=== PATIENT | female | born 1980 | race Two or more races ===

== ENCOUNTER 2022-03-18 06:51 | Emergency (ER) | payer MEDICAID ==
[~2022-03-18] VITALS: Ht 172.7 cm; Wt 110.7 kg
[2022-03-18 08:11] VITALS: BP 116/77
[2022-03-18] MEDS ORDERED: DexAMETHasone SOD PHOS 10MG/1ML VIAL INJ IM ONE (08:30)
[2022-03-18] MEDS ORDERED: PRED10TA PO (09:13)
[2022-03-18 09:28] LABS: Basophils # (auto) 0 10 ^3/uL (0-0.2); Basophils % (auto) 0.4 % (0.0-2.0); Eosinophils # (auto) 0 10 ^3/uL (0-0.8); Eosinophils % (auto) 0.3 % (0.0-7.0); Hematocrit 39.4 % (36.0-46.0); Hemoglobin 13.3 g/dL (12.2-16.2); Lymphocytes % (auto) 32.7 % (10.0-50.0); Mean Corpuscular Hemoglobin 29.1 pg (28.0-32.0); Mean Corpuscular Hgb Conc. 33.7 g/dL (32.0-36.0); Mean Corpuscular Volume 86.2 fL (80.0-100.0); Monocytes # (auto) 0.5 10 ^3/uL (0-1.3); Monocytes % (auto) 7.5 % (0.0-12.0); Neutrophils # (auto) 3.6 10 ^3/uL (1.6-8.6); Neutrophils % (auto) 59.1 % (37.0-80.0); Nucleated Red Blood Cells % 0.1 %; Red Blood Cells 4.57 10^6/uL (4.0-5.20); Red Cell Distribution Width 14.1 % (11.8-14.3); White Blood Cell 6.1 10^3/uL (4.4-10.8)
[2022-03-18 09:33] LABS: Urine Bacteria FEW /hpf (None Seen); Urine Blood 2+ /uL (Negative); Urine Budding Yeast OCCASIONAL /hpf (None Seen); Urine WBC 4 /hpf (0 - 5)
[2022-03-18 10:00] LABS: Albumin 3.9 g/dL (3.4-5.0); Calcium 9.2 mg/dL (8.5-10.1); Potassium 4.2 mmol/L (3.5-5.1)
[2022-03-18 10:03] LABS: BUN/Creatinine Ratio 14.8; Bilirubin, Total 0.4 mg/dL (0.2-1.0)
[2022-03-18 10:05] LABS: Alcohol, Urine < 3.0 mg/dL (0-10); Amphetamine Screen, Urine NEGATIVE (NEGATIVE); Barbiturate Scree,Urine NEGATIVE (NEGATIVE); Cannabinoid Screen, Urine POSITIVE (NEGATIVE); Cocaine Screen, Urine NEGATIVE (NEGATIVE); Opiate Scree,Urine NEGATIVE (NEGATIVE); Phencyclidine Screen, Urine NEGATIVE (NEGATIVE)
[2022-03-18 10:12] LABS: Benzodiazephine Screen, Urine NEGATIVE (NEGATIVE)
== END 2022-03-18 12:46 | disposition home or self-care (01) ==
LOC: EEVIPCON 06:51 → ER 06:51
DX: J66.2 Cannabinosis (principal); T65.91XA Toxic effect of unspecified substance, accidental (unintentional), initial encounter; Y92.89 Other specified places as the place of occurrence of the external cause
CPT/HCPCS: 36415; 71046; 80053; 80307; 81001; 81025; 84484; 85025; 93005; 96374; 99285; J1100

== ENCOUNTER 2022-04-26 16:59 | Emergency (ER) | payer MEDICAID ==
[~2022-04-26] VITALS: Ht 172.7 cm; Wt 108.9 kg
[~2022-04-26 16:59] MED LIST: PRED10TA PO
[2022-04-26 17:01] VITALS: BP 125/74
[2022-04-26] MEDS ORDERED: AZIT1POW PO (21:24)
[2022-04-27] MEDS ORDERED: AZIT1POW12 PO (05:40)
[2022-04-27] MEDS ORDERED: PRED10TA PO (05:40)
== END 2022-04-26 21:52 | disposition home or self-care (01) ==
LOC: ER 16:59 → EEVIPCON 16:59 → ER 21:52
DX: J20.9 Acute bronchitis, unspecified (principal); F17.210 Nicotine dependence, cigarettes, uncomplicated; Z20.822 Contact with and (suspected) exposure to COVID-19; Z88.6 Allergy status to analgesic agent
CPT/HCPCS: 36415; 71046

== ENCOUNTER → 2024-12-09 | Outpatient (CLI) | payer MEDICAID ==
[~2024-12-09] MED LIST changes: +AZIT1POW PO; +AZIT1POW12 PO
[2024-12-09 11:44] LABS: Basophils # (auto) 0 10 ^3/uL (0-0.2); Basophils % (auto) 0.7 % (0.0-2.0); Eosinophils # (auto) 0 10 ^3/uL (0-0.8); Eosinophils % (auto) 0.6 % (0.0-7.0); Hematocrit 42.3 % (36.0-46.0); Hemoglobin 13.9 g/dL (12.2-16.2); Lymphocytes % (auto) 34.9 % (10.0-50.0); Mean Corpuscular Hemoglobin 28.4 pg (28.0-32.0); Mean Corpuscular Hgb Conc. 32.9 g/dL (32.0-36.0); Mean Corpuscular Volume 86.2 fL (80.0-100.0); Monocytes # (auto) 0.5 10 ^3/uL (0-1.3); Neutrophils # (auto) 3.1 10 ^3/uL (1.6-8.6); Neutrophils % (auto) 54.8 % (37.0-80.0); Nucleated Red Blood Cells % 0.1 %; Platelet Count (auto) 285 10^3/uL (140-450); Red Blood Cells 4.91 10^6/uL (4.0-5.20); White Blood Cell 5.6 10^3/uL (4.4-10.8)
[2024-12-09 12:40] LABS: Beta HCG, Quantitative 0.8 mIU/mL (1.5-4.2)
[2024-12-09 12:41] LABS: Alanine Aminotransferase 13 U/L (7-40); Albumin 4.6 g/dL (3.2-4.8); Alkaline Phosphatase 66 U/L (46-116); Anion Gap 8 (5-15); Aspartate Aminotransferase 14 U/L (13-40); BUN/Creatinine Ratio 12.1 (10.0-20.0); Blood Urea Nitrogen 13 mg/dL (9-23); Calcium 10.4 mg/dL (8.7-10.4); Carbon Dioxide 27 mmol/L (20-31); Chloride 105 mmol/L (98-107); Glucose 104 mg/dL (74-106); Sodium 140 mmol/L (136-145)
[2024-12-09 12:42] LABS: Bilirubin, Total 0.7 mg/dL (0.2-1.0); Total Protein 7.9 g/dL (5.7-8.2)
== END | disposition home or self-care (01) ==
LOC: LAB 11:22
PROVIDERS: ATTEND Obstetrics & Gynecology
DX: Z01.419 Encounter for gynecological examination (general) (routine) without abnormal findings (principal); E28.2 Polycystic ovarian syndrome; R10.9 Unspecified abdominal pain
CPT/HCPCS: 36415; 80053; 84146; 84443; 84702; 85025

== ENCOUNTER → 2025-01-03 | Outpatient (CLI) | payer MEDICAID ==
[~2025-01-03] MED LIST changes: +ALPR0.5T7 PO; +PANT40TA2 PO; +TIRZ2.5I2 SC
[2025-01-03 11:18] LABS: Basophils # (auto) 0 10 ^3/uL (0-0.2); Basophils % (auto) 0.4 % (0.0-2.0); Eosinophils # (auto) 0 10 ^3/uL (0-0.8); Eosinophils % (auto) 0.7 % (0.0-7.0); Hemoglobin 13.7 g/dL (12.2-16.2); Lymphocytes # (auto) 1.7 10 ^3/uL (0.4-5.4); Lymphocytes % (auto) 35.5 % (10.0-50.0); Mean Corpuscular Hemoglobin 27.8 pg (28.0-32.0); Mean Corpuscular Hgb Conc. 32.6 g/dL (32.0-36.0); Mean Corpuscular Volume 85.4 fL (80.0-100.0); Monocytes # (auto) 0.3 10 ^3/uL (0-1.3); Monocytes % (auto) 6.4 % (0.0-12.0); Neutrophils # (auto) 2.7 10 ^3/uL (1.6-8.6); Nucleated Red Blood Cells % 0.1 %; Platelet Count (auto) 285 10^3/uL (140-450); Red Blood Cells 4.91 10^6/uL (4.0-5.20); Red Cell Distribution Width 13.8 % (11.8-14.3); White Blood Cell 4.7 10^3/uL (4.4-10.8)
[2025-01-03 12:05] LABS: Alanine Aminotransferase 22 U/L (7-40); Albumin 4.6 g/dL (3.2-4.8); Alkaline Phosphatase 46 U/L (46-116); Anion Gap 9 (5-15); Aspartate Aminotransferase 13 U/L (13-40); BUN/Creatinine Ratio 13.6 (10.0-20.0); Blood Urea Nitrogen 14 mg/dL (9-23); Calcium 9.6 mg/dL (8.7-10.4); Carbon Dioxide 25 mmol/L (20-31); Chloride 106 mmol/L (98-107); Cholesterol 180 mg/dL (< 200); Potassium 3.7 mmol/L (3.5-5.1); Sodium 140 mmol/L (136-145); Triglycerides 106 mg/dL (< 150)
[2025-01-03 12:06] LABS: Bilirubin, Total 0.4 mg/dL (0.2-1.0); Total Protein 7.6 g/dL (5.7-8.2)
[2025-01-03 12:13] LABS: Glucose 106 mg/dL (74-106); HDL Cholesterol 40 mg/dL (40-59); LDL Cholesterol 135 mg/dL (< 100)
== END | disposition home or self-care (01) ==
LOC: LAB 10:29
DX: Z00.00 Encounter for general adult medical examination without abnormal findings (principal)
CPT/HCPCS: 36415; 80053; 80061; 82306; 83036; 84439; 84443; 85025; 87086

== ENCOUNTER → 2025-01-07 | Day surgery (SDC) | payer MEDICAID ==
--- NOTE | 2025-01-03 09:27 | DVHHP2 ---
[facility] CC & HPI Date Date of Admission: Jan 07, 2025 Chief Complaints: Reason for admission: Same day surgery outpatient procedure History of Present Complaints History of Present Complaints 44y female, x 3, SAB 1 . LMP 11/26/24. Using NuvaRIng for control of heavy menstrual bleeding (HMB). Patient has regular monthly menstrual cycles that are excessive, associated with dysmenorrhea. Denies anemia, history of blood transfusion or pelvic pain. s/p BTL for contraception. Not currently sexually active. Last PAP NILM/HPV neg 11/2024 Pelvic US shows normal sized uterus without fibroids or polyps. Endometrium thickness WNL. PMHx: Obesity, Anxiety, GERD Surg Hx: Lap Band, Lap Band removal. Gastric Sleeve, BTL, Facial surgery nose/facial fracture Meds: Pantoprazole, ALprazolam, ZepBound (last used greater than 2 wk ago) Allergies: NKDA Social Hx: Denies Tobacco, drug use. Moderate EtOH use Family Hx: non contributory Allergies: Coded Allergies: Acetaminophen (Verified Allergy, Unknown, 03/18/22) Hydrocodone (Verified Allergy, Unknown, 03/18/22) Home Meds Active Scripts Azithromycin (Zithromax) 1 Gm Pow, 1 PACK PO ONCE, #1 PACK Prov:LINCOLN CHRISTIAN MD 04/26/22 Prednisone (Prednisone) 10 Mg Tab, 10 MG PO BID for 5 Days, #10 MG 0 Refills Prov:MARIAN MCKEON PERIODONTIST 03/18/22 Reported Medications Prednisone (Prednisone) 10 Mg Tab, 10 MG PO BID for 5 Days, #10 MG 04/27/22 Azithromycin (Azithromycin) 1 Gm Pow, 1 PACK PO ONCE, #1 PACK 04/27/22 Review of Systems Constitutional: No symptom reported Ears, Nose, & Throat: No symptom reported Eyes: No symptom reported Pulmonary/Respiratory: No symptom reported Cardiovascular: No symptom reported Gastrointestinal: No symptom reported Genitourinary: No symptom reported Musculoskeletal: No symptom reported Skin: No symptom reported Psychiatric: No symptom reported Endocrine: No symptom reported Hemotologic/Lymphatic: No symptom reported Physical Exam Physical Exam HEENT: NCAT Heart: Rhythm Normal Abdomen: Soft Extremities: Normal Reflexes: Normal 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 Heavy menstrual bleeding (Excessive menses) Plan: Procedure: Pelvic Exam Under Anesthesia (PEUA), Hysteroscopy, Dilation and curettage (D&C), NovaSure Endometrial ablation Risks of pain, bleeding, infection, injury to uterus (perforation), blood transfusion all discussed with patient and informed consent obtained. NO guarantee for amenorrhea given, understands up 70% of patients experience donor processor to absent menses after procedure, but procedure may also fail Visit Coding OBGYN Date of Service: Jan 03, 2025 Billing Provider: BRETT VELEZ DO DOCTOR OSTEOPATHIC Common Visit Codes: PROCEDURE ONLY BRETT VELEZ DO Jan 03, 2025 09:27
[2025-01-03 11:38] LABS: INR 0.95 (0.9-1.15); Partial Thromboplastin Time 26.7 SEC (24.5-34.5); Prothrombin Time 10.1 sec (9.3-11.8)
[2025-01-03 12:15] LABS: Urine Bacteria FEW /hpf (None Seen); Urine Blood 1+ /uL (Negative); Urine Clarity Clear (Clear); Urine Color Yellow (Yellow); Urine Mucus FEW (None Seen); Urine Protein, UAD TRACE (Negative); Urine Specific Gravity 1.034 (1.001-1.035); Urine Squamous Epithelial Cell FEW /hpf (<5); Urine Urobilinogen Normal (Negative); Urine WBC 3 /HPF (0-5)
[2025-01-03 12:28] LABS: Basophils # (auto) 0 10 ^3/uL (0-0.2); Basophils % (auto) 0.4 % (0.0-2.0); Eosinophils # (auto) 0 10 ^3/uL (0-0.8); Eosinophils % (auto) 0.7 % (0.0-7.0); Hemoglobin 13.7 g/dL (12.2-16.2); Lymphocytes # (auto) 1.7 10 ^3/uL (0.4-5.4); Lymphocytes % (auto) 35.5 % (10.0-50.0); Mean Corpuscular Hemoglobin 27.8 pg (28.0-32.0); Mean Corpuscular Hgb Conc. 32.6 g/dL (32.0-36.0); Mean Corpuscular Volume 85.4 fL (80.0-100.0); Monocytes # (auto) 0.3 10 ^3/uL (0-1.3); Monocytes % (auto) 6.4 % (0.0-12.0); Neutrophils # (auto) 2.7 10 ^3/uL (1.6-8.6); Nucleated Red Blood Cells % 0.1 %; Platelet Count (auto) 285 10^3/uL (140-450); Red Blood Cells 4.91 10^6/uL (4.0-5.20); Red Cell Distribution Width 13.8 % (11.8-14.3); White Blood Cell 4.7 10^3/uL (4.4-10.8)
[2025-01-03 13:31] LABS: Alanine Aminotransferase 21 U/L (7-40); Albumin 4.7 g/dL (3.2-4.8); Alkaline Phosphatase 50 U/L (46-116); Anion Gap 9 (5-15); Aspartate Aminotransferase 15 U/L (13-40); BUN/Creatinine Ratio 12.7 (10.0-20.0); Blood Urea Nitrogen 13 mg/dL (9-23); Calcium 9.6 mg/dL (8.7-10.4); Carbon Dioxide 24 mmol/L (20-31); Chloride 107 mmol/L (98-107); Potassium 3.7 mmol/L (3.5-5.1); Sodium 140 mmol/L (136-145)
[2025-01-03 13:32] LABS: Bilirubin, Total 0.4 mg/dL (0.2-1.0); Total Protein 7.7 g/dL (5.7-8.2)
[2025-01-03 13:41] LABS: Glucose 106 mg/dL (74-106)
[~2025-01-07] VITALS: Ht 172.7 cm; Wt 120.2 kg
[~2025-01-07] MED LIST changes: -AZIT1POW PO; -AZIT1POW12 PO; +DOXAPRAM HCL 20 MG/ML 20ML VIAL INJ IV ONE; +DexAMETHasone SOD PHOS 10MG/1ML VIAL INJ ONE; +HYDROmorphone HCL 2 MG/ML VL/or syr IV PRN; +IBUP1TAB5 PO; +KETAMINE 50mg/ML 1ml syringe ONE; +KETOROLAC TROMETH 30 MG/ML 1ML VIAL ONE; +LIDOCAINE 1% INJ PF 5ML AMP ONE; +LIDOCAINE HCL 2% TOP JELLY 5ML TOP ONE; +MEPERIDINE HCL (25 MG/ML) 1ML VIAL ONE; +METOCLOPRAMIDE HCL 5MG/ml INJ 2ml VIAL ONE; +MIDAZOLAM HCL 2MG/2ML 2ml VIAL (1mg/ml) ONE; +MORPHINE SULFATE 4 MG/ML SYR/VIAL IV PRN; +MORPHINE SULFATE INJ 2 MG/ml SYRG IV PRN; +ONDANSETRON HCL 4 MG/2 ML VIAL ONE; -PRED10TA PO; +PROPOFOL 10 MG/ML 20 ML IV ONE; +ROCURONIUM 10MG/ML 10ML VIAL IV ONE; +SODIUM CHLORIDE LOCK 10 ML ONE; +SUCCINYLCHOLINE CHLORIDE 20 MG/ML 10ML VIAL IV ONE; +VASOPRESSIN 20 UNIT/ML ONE; +fentaNYL CITRATE 100 MCG/2 ML VL ONE
[2025-01-07] MEDS: ceFAZolin 2 GM/D5W100ml 100 ML IV ONE (07:30)
[2025-01-07 08:07] VITALS: TEMP 98.8; O2SAT 99
--- NOTE | 2025-01-07 08:24 | DVHOP ---
DATE OF SURGERY: 01/07/2025 PREOPERATIVE DIAGNOSIS: Heavy menstrual bleeding (menorrhagia). FINAL DIAGNOSIS: Heavy menstrual bleeding (menorrhagia). PROCEDURE PERFORMED: Pelvic exam under anesthesia, dilation and curettage, hysteroscopy, NovaSure endometrial ablation. SURGEON: Miah Flaherty DO COMPENSATION AND BENEFITS ANALYST: Zeynep Rice MD, PGY1, family practice resident. TYPE OF ANESTHESIA: General endotracheal. ANESTHESIOLOGIST: Mony Anton MD. DESCRIPTION OF FINDINGS: Uterus is approximately 10-12 week size, globular without myomas or polyps. Uterine cavity sounds to 10 cm. On hysteroscopy, there was no evidence of intracavitary lesions. There is no gross evidence of hyperplasia or malignancy. Bilateral tubal ostia successfully seen. Successful completion of NovaSure ablation. Ablation cycle of 44 seconds. Post-ablation hysteroscopy revealed complete and total ablation of the endometrial cavity consistent with a satisfactory procedure. TECHNICAL PROCEDURE: After informed consent was obtained, the patient was taken to the operating room where she underwent smooth induction with general anesthesia. The patient was placed in dorsal lithotomy position in Frankie stirrups. She was sterilely prepped and draped in the usual sterile fashion. A pelvic exam was then performed under anesthesia with the above noted findings. A weighted speculum was placed into the patient's vagina. The anterior lip of the cervix was grasped with a single tooth tenaculum. Uterine cavity sounded to 10 cm. The uterine cervix was serially dilated up to 8 mm. A 7 mm hysteroscope was inserted through the cervix into the uterine cavity. Normal saline was used as the distention medium. Survey of the endometrial cavity revealed the above noted findings. There were no polyps, fibroids or any lesions within the cavity of the uterus. Bilateral tubal ostia were successfully seen. The hysteroscope was removed under direct visualization. A sharp uterine curettage was performed and the endometrial curettings obtained on a Telfa pad and submitted to pathology. Next, the NovaSure device was deployed into the uterine cavity and seated per local operator's instructions. The total cavity length was calculated to 6 cm and the cavity width was adjusted to 3.7 cm. The integrity test passed on first attempt. The ablation cycle began and continued automatically for 44 seconds. At the conclusion of the ablation cycle the instrument was removed successfully from the uterine cavity atraumatically. A second look with the hysteroscope was performed. The cavity revealed complete ablation of all surfaces of the cavity confirming a satisfactory ablation. The hysteroscope was removed under direct visualization. The weighted speculum and tenaculum were removed from the patient's vagina and cervix respectively. There was no bleeding from the cervix noted. The patient was then taken out of lithotomy position, awakened, and taken to recovery room in stable condition. INTRAOPERATIVE COMPLICATIONS: None. ESTIMATED BLOOD LOSS: Less than 10 mL. POSTOPERATIVE CONDITION: Stable. SPECIMENS: Endometrial curettings. DO JOSY Lemus/GANESH TID: [id number] RECEIPT: [id number] [facility]
[2025-01-07] MEDS: METOCLOPRAMIDE HCL 5MG/ml INJ 2ml VIAL IV ONE (08:31)
[2025-01-07] MEDS: KETOROLAC TROMETH 30 MG/ML 1ML VIAL IV ONE (08:48)
[2025-01-07 09:07] VITALS: BP 114/70; PULSE 74; RESP 15; O2SAT 96
== END | disposition home or self-care (01) ==
LOC: SUR 06:13
PROVIDERS: ATTEND Obstetrics & Gynecology
DX: N92.0 Excessive and frequent menstruation with regular cycle (principal); N94.6 Dysmenorrhea, unspecified; E66.9 Obesity, unspecified; K21.9 Gastro-esophageal reflux disease without esophagitis; F41.9 Anxiety disorder, unspecified; Z88.5 Allergy status to narcotic agent; Z98.51 Tubal ligation status; Z79.52 Long term (current) use of systemic steroids; Z98.84 Bariatric surgery status; Z98.890 Other specified postprocedural states
CPT/HCPCS: 36415; 58563; 80053; 81001; 81025; 84702; 85025; 85610; 85730; 86850; 86900; 86901; 88305; J0330; J1100; J1885; J2175; J2250; J2405; J2704; J2765; J3010

== ENCOUNTER 2025-05-20 10:51 | Inpatient (IN) | payer MEDICAID ==
[~2025-05-20] VITALS: Ht 172.7 cm; Wt 113.0 kg
[~2025-05-20 10:51] MED LIST changes: -DOXAPRAM HCL 20 MG/ML 20ML VIAL INJ IV ONE; -DexAMETHasone SOD PHOS 10MG/1ML VIAL INJ ONE; -HYDROmorphone HCL 2 MG/ML VL/or syr IV PRN; -KETAMINE 50mg/ML 1ml syringe ONE; -KETOROLAC TROMETH 30 MG/ML 1ML VIAL ONE; -LIDOCAINE 1% INJ PF 5ML AMP ONE; -LIDOCAINE HCL 2% TOP JELLY 5ML TOP ONE; -MEPERIDINE HCL (25 MG/ML) 1ML VIAL ONE; -METOCLOPRAMIDE HCL 5MG/ml INJ 2ml VIAL ONE; -MIDAZOLAM HCL 2MG/2ML 2ml VIAL (1mg/ml) ONE; -MORPHINE SULFATE 4 MG/ML SYR/VIAL IV PRN; -MORPHINE SULFATE INJ 2 MG/ml SYRG IV PRN; -ONDANSETRON HCL 4 MG/2 ML VIAL ONE; -PROPOFOL 10 MG/ML 20 ML IV ONE; -ROCURONIUM 10MG/ML 10ML VIAL IV ONE; -SODIUM CHLORIDE LOCK 10 ML ONE; -SUCCINYLCHOLINE CHLORIDE 20 MG/ML 10ML VIAL IV ONE; -VASOPRESSIN 20 UNIT/ML ONE; -fentaNYL CITRATE 100 MCG/2 ML VL ONE
--- NOTE | 2025-05-20 11:08 | ED.PDOC ---
History of Present Illness HPI Comments 45-year-old female presents with a chief complaint of abdominal pain x 2 days with associated weakness. Patient states that her pain is localized to her RUQ, nonradiating, describes as stabbing, and rates her pain a 8/10. Patient mentions that she attempted to make an appointment with her PMD, but was referred to the ER instead. Patient also states that she feels weak and a little lightheaded. Chief Complaint: Abdominal Pain Time Seen by MD: 10:57 Primary Care Provider: GLADIS Reviewed Notes: Medications, Allergies Allergies: Coded Allergies: Nery (Unverified Allergy, Mild, hives, 01/04/25) Hydrocodone (Verified Allergy, Unknown, 03/18/22) Home Meds Active Scripts Ibuprofen Micronized (Ibuprofen) 600 Mg Tab, 600 MG PO Q8HPRN PRN, #20 TAB Prov:BRETT VELEZ DO 01/07/25 Reported Medications Alprazolam (Alprazolam) 0.5 Mg Tab, 0.5 MG PO TIDPRN PRN for ANXIETY, TAB 01/03/25 Tirzepatide (Zepbound) 2.5 Mg/0.5 Ml Inj, 2.5 MG SC QWEEKLY, INJ 01/03/25 Pantoprazole Sodium Sesquihydr (Protonix) 40 Mg Tab, 40 MG PO DAILY, #30 TAB 01/03/25 Information Source: Patient Mode of Arrival: Ambulatory Severity: Moderate Timing: Hours Duration: Since onset Prehospital treatment: None Past Medical History PAST MEDICAL HISTORY: Denies Surgical History (Other): Gastric Sleeve 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: 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[employer]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 Hx Family History Family History: Family hx of DM Social History Smoker: Cigarettes Alcohol: Denies ETOH Use Drugs: Denies Drug Use Lives In: Home Constitutional: reports: weakness; denies: chills, diaphoresis, fatigue, fever, malaise, sweats, others EENTM: denies: blurred vision, double vision, ear bleeding, ear discharge, ear drainage, ear pain, ear ringing, eye pain, eye redness, hearing loss, mouth pain, mouth swelling, nasal discharge, nose bleeding, nose congestion, nose pain, photophobia, tearing, throat pain, throat swelling, voice changes, others Respiratory: denies: cough, hemoptysis, orthopnea, SOB at rest, shortness of breath, SOB with excertion, stridor, wheezing, others Cardiovascular: denies: chest pain, dizzy spells, diaphoresis, Dyspnea on exe rtion, edema, irregular heart beat, left arm pain, lightheadedness, palpitations, PND, syncope, others Gastrointestinal: reports: abdominal pain; denies: abdomen distended, blood streaked bowels, constipated, diarrhea, dysphagia, difficulty swallowing, hematemesis, melena, nausea, poor appetite, poor fluid intake, rectal bleeding, rectal pain, vomiting, others Genitourinary: denies: abnormal vagina bleeding, burning, dyspareunia, dysuria, flank pain, frequency, hematuria, incontinence, pain, , vagina discharge, urgency, others Neurological: denies: dizziness, fainting, headache, left sided numbness, left sided weakness, numbness, paresthesia, pre-existing deficit, right sided numbness, right sided weakness, seizure, speech problems, tingling, tremors, weakness, others Musculoskeletal: denies: back pain, gout, joint pain, joint swelling, muscle pain, muscle stiffness, neck pain, others Integumetry: denies: bruises, change in color, change in hair/nails, dryness, laceration, lesions, lumps, rash, wounds, others Allergic/Immunocompromised: denies: Difficulty Healing, Frequent Infections, Hives, Itching, others Hematologic/Lymphatic: denies: anemia, blood clots, easy bleeding, easy bruising, swollen glands, others Endocrine: denies: excessive hunger, excessive sweating, excessive thirst, excessive urination, flushing, intolerance to cold, intolerance to heat, unexplained weight gain, unexplained weight loss, others Psychiatric: denies: anxiety, bipolar disorder, depression, hopeless, panic disorder, schizophrenia, sleepless, suicidal, others All Other Systems: Reviewed and Negative Physical Exam General Appearance: Moderate Distress, Normal HEENT: Normal ENT Inspection, Pharynx Normal, TMs Normal Neck: Full Range of Motion, Non-Tender, Normal, Normal Inspection Respiratory: Chest Non-Tender, Lungs Clear, No Accessory Muscle Use, No Respiratory Distress, Normal Breath Sounds Cardiovascular: No Edema, No JVD, No Murmur, No Gallop, Normal Peripheral Pulses, Regular Rate/Rhythm Breast Exam: Deferred Gastrointestinal: No Organomegaly, Non Tender, No Pulsatile Mass, Normal Bowel Sounds, Soft Genitalia: Deferred Pelvic: Deferred Rectal: Deferred Extremities: No calf tenderness, Normal capillary refill, Normal inspection, Normal range of motion, Non-tender, No pedal edema Musculoskeletal : Apperance: Normal Neurologic: Alert, entry level manager II-XII nml as Tested, No Motor Deficits, Normal Affect, Normal Mood, No Sensory Deficits Cerebellar Function: Normal Reflexes: Normal Skin: Dry, Normal Color, Warm Peripheral Pulses: 3+ Radial (R), 3+ Radial (L) Lymphatic: No Adenopathy Was a procedure done? Was a procedure done?: No Differential Dx Considerations may include: Colitis Electrolyte imbalance X-Ray, Labs, Meds, VS Vital Signs Date Time Temp Pulse Resp B/P (MAP) Pulse Ox O2 Delivery O2 Flow Rate FiO2 05/20/25 12:38 98.1 81 16 118/67 (84) 98 98.1 05/20/25 12:38 81 16 98 Room Air 05/20/25 10:57 98.0 81 18 121/84 (96) 98 98.0 Lab Test 05/20/25 11:17 05/20/25 11:00 Range/Units White Blood Count 8.2 4.4-10.8 10^3/uL Red Blood Count 4.87 4.0-5.20 10^6/uL Hemoglobin 14.1 12.2-16.2 g/dL Hematocrit 41.5 36.0-46.0 % Mean Corpuscular Volume 85.2 80.0-100.0 fL Mean Corpuscular Hemoglobin 28.9 28.0-32.0 pg Mean Corpuscular Hemoglobin Concent 33.9 32.0-36.0 g/dL Red Cell Distribution Width 14.5 H 11.8-14.3 % Platelet Count 318 140-450 10^3/uL Mean Platelet Volume 7.5 6.9-10.8 fL Neutrophils (%) (Auto) 62.2 37.0-80.0 % Lymphocytes (%) (Auto) 28.9 10.0-50.0 % Monocytes (%) (Auto) 8.1 0.0-12.0 % Eosinophils (%) (Auto) 0.1 0.0-7.0 % Basophils (%) (Auto) 0.7 0.0-2.0 % Neutrophils # (Auto) 5.1 1.6-8.6 10 ^3/uL Lymphocytes # (Auto) 2.4 0.4-5.4 10 ^3/uL Monocytes # (Auto) 0.7 0-1.3 10 ^3/uL Eosinophils # (Auto) 0 0-0.8 10 ^3/uL Basophils # (Auto) 0.1 0-0.2 10 ^3/uL Nucleated Red Blood Cells 0.1 % Sodium Level 142 136-145 mmol/L Potassium Level 4.1 3.5-5.1 mmol/L Chloride Level 107 98-107 mmol/L Carbon Dioxide Level 26 20-31 mmol/L Anion Gap 9 5-15 Blood Urea Nitrogen 12 9-23 mg/dL Creatinine 1.05 H 0.550-1.02 mg/dL Glomerular Filtration Rate Calc 68 >90 mL/min BUN/Creatinine Ratio 11.4 10.0-20.0 Serum Glucose 88 74-106 mg/dL Calcium Level 10.4 8.7-10.4 mg/dL Urine Color Yellow Yellow Urine Clarity Turbid H Clear Urine pH 5.5 5.0-9.0 Urine Specific [place] 1.020 1.001-1.035 Urine Protein Negative Negative Urine Ketones Negative Negative Urine Blood Negative Negative /uL Urine Nitrite Negative Negative Urine Bilirubin Negative Negative Urine Urobilinogen Normal Negative mg/dL Urine Leukocyte Esterase 3+ Negative /uL Urine RBC 6 0 - 4 /hpf Urine Microscopic WBC 33 H 0-5 /HPF Urine Squamous Epithelial Cells Few <5 /hpf Urine Bacteria None seen None Seen /hpf Urine Mucus Few None Seen Urine Glucose Normal Normal mg/dL Patient alert. Complaining of abdominal pain. Vitals stable. Answering questions. Nonspecific about location of pain. Abdomen is soft. She is tender on deep palpation. Continues to have abdominal pain. Explained to the patient. Continue monitoring. Time of 1ST Reevaluation: 11:27 Reevaluation 1ST: Unchanged Patient Education/Counseling: Diagnosis, Treatment, Need For Follow Up Family Education/Counseling: No Family Present SEPSIS Sepsis Screen Vital Signs Date Time Temp Pulse Resp B/P (MAP) Pulse Ox O2 Delivery O2 Flow Rate FiO2 05/20/25 12:38 98.1 81 16 118/67 (84) 98 98.1 05/20/25 12:38 81 16 98 Room Air 05/20/25 10:57 98.0 81 18 121/84 (96) 98 98.0 Laboratory Tests Test 05/20/25 11:17 White Blood Count 8.2 10^3/uL (4.4-10.8) Departure 1 Departure Time of Disposition: 11:12 Impression: Primary Impression: Acute abdominal pain Additional Impression: Urinary tract infection Qualified Codes: N30.01 - Acute cystitis with hematuria Disposition: ADMITTED INPATIENT Admit to: Med Surg Condition: Guarded Critical Care Note Critical Care Time?: No Stability Stability form required: No Heart Score Heart Score: Heart Score Response (Comments) Value History N/A 0 EKG N/A 0 Age N/A 0 Risk Factors N/A 0 Troponin N/A 0 Total 0 I personally scribed for AVELINO FERNANDO MD ([email or web address]) on 05/20/25 at 11:08. Electronically submitted by Jamar Elias ([email or web address]). AVELINO FERNANDO MD May 20, 2025 11:08
[2025-05-20 11:31] LABS: Basophils # (auto) 0.1 10 ^3/uL (0-0.2); Basophils % (auto) 0.7 % (0.0-2.0); Eosinophils # (auto) 0 10 ^3/uL (0-0.8); Eosinophils % (auto) 0.1 % (0.0-7.0); Hematocrit 41.5 % (36.0-46.0); Hemoglobin 14.1 g/dL (12.2-16.2); Lymphocytes # (auto) 2.4 10 ^3/uL (0.4-5.4); Lymphocytes % (auto) 28.9 % (10.0-50.0); Mean Corpuscular Hemoglobin 28.9 pg (28.0-32.0); Mean Corpuscular Hgb Conc. 33.9 g/dL (32.0-36.0); Mean Corpuscular Volume 85.2 fL (80.0-100.0); Monocytes # (auto) 0.7 10 ^3/uL (0-1.3); Monocytes % (auto) 8.1 % (0.0-12.0); Neutrophils # (auto) 5.1 10 ^3/uL (1.6-8.6); Neutrophils % (auto) 62.2 % (37.0-80.0); Nucleated Red Blood Cells % 0.1 %; Platelet Count (auto) 318 10^3/uL (140-450); Red Blood Cells 4.87 10^6/uL (4.0-5.20); Red Cell Distribution Width 14.5 % (11.8-14.3); White Blood Cell 8.2 10^3/uL (4.4-10.8)
[2025-05-20 11:44] LABS: Chloride 107 mmol/L (98-107); Potassium 4.1 mmol/L (3.5-5.1); Sodium 142 mmol/L (136-145)
[2025-05-20 11:45] LABS: Anion Gap 9 (5-15); Calcium 10.4 mg/dL (8.7-10.4); Carbon Dioxide 26 mmol/L (20-31)
[2025-05-20 11:50] LABS: Urine Bacteria None Seen /hpf (None Seen)
[2025-05-20 11:50] LABS: BUN/Creatinine Ratio 11.4 (10.0-20.0); Blood Urea Nitrogen 12 mg/dL (9-23); Glucose 88 mg/dL (74-106)
[2025-05-20 11:59] LABS: Urine Blood Negative /uL (Negative); Urine Clarity Turbid (Clear); Urine Color Yellow (Yellow); Urine Mucus FEW (None Seen); Urine Protein, UAD Negative (Negative); Urine Squamous Epithelial Cell FEW /hpf (<5); Urine Urobilinogen Normal (Negative); Urine WBC 33 /HPF (0-5); Urine pH 5.5 (5.0-9.0)
[2025-05-20] MEDS: cefTRIAXone 1GM/50ML D5W 50 ML IV ONE (13:33)
[2025-05-20 13:36] VITALS: PULSE 89; RESP 16; O2SAT 95
--- NOTE | 2025-05-20 13:43 | DVH ---
Exam: CT CT AB PEL WO CON-NO ORAL OR IV History: stone Comparison Study: None Technique: Multidetector spiral CT of the abdomen and pelvis was performed from lung bases to pubic symphysis. Imaging was performed without IV contrast. Axial, coronal and sagittal multiplanar reform ats were obtained from the axial data set by the technologist. Radiation dose : Abdomen/Pelvis: CTDIvol mGy, DLP mGy*cm. Findings: Evaluation of solid organs is limited due to lack of intravenous contrast use. Lung Bases: No acute or significant lung base finding. Normal heart size. No pleural or pericardial effusion. Liver: The liver is normal in size. No focal lesions. Gallbladder and biliary Tree: Unremarkable Spleen: Unremarkable Pancreas: The pancreas is grossly normal in appearance. Adrenal Glands: Unremarkable Kidneys: Kidneys are grossly normal without calculi or hydronephrosis. Punctate calculus along the co urse of the distal right ureter is thought to be vascular. Bladder: Grossly unremarkable for degree of distention. Bowel: Postsurgical changes in the stomach. Small bowel and colon are normal in caliber and distribut ion. Normal appendix is visualized in the right lower quadrant without findings of appendicitis. Ascites: Absent Lymphadenopathy: No mesenteric, retroperitoneal or periportal lymphadenopathy. Abdominal wall and Mesentery: Small fat containing umbilical hernia. Vasculature: The visualized abdominal aorta is normal in size and caliber. Evaluation of abdominal a nd pelvic vessels is limited due to lack of intravenous contrast. Pelvic Organs: Unremarkable Musculoskeletal: No aggressive focal bony lesions, acute fractures or dislocation. IMPRESSION: 1. No acute abdominal or pelvic findings. No hydronephrosis or nephrolithiasis. Punctate calcificati on along the course of the distal right ureter is thought to be vascular. If concern persists and thi s corresponds to symptoms consider follow-up CT urogram. Radiation optimization: All CT scans at this facility use at least one of these dose optimization isis hniques: Automated exposure control mA and/or kV adjustment per patient size (includes targeted exams where dose is matched to clinical indication) or iterative reconstruction. HS:Y
[2025-05-20] MEDS ORDERED: ONDANSETRON HCL 4 MG/2 ML VIAL IV PRN (16:00)
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
[2025-05-20 16:26] LABS: Alkaline Phosphatase 66 U/L (46-116); Aspartate Aminotransferase 13 U/L (<34)
[2025-05-20 16:28] LABS: Alanine Aminotransferase 9 U/L (7-40)
[2025-05-20] MEDS: ALPRAZolam 0.5 MG TAB PO PRN (17:58)
[2025-05-20] MEDS: ACETAMINOPHEN 325 MG TAB PO PRN (17:58)
--- NOTE | 2025-05-20 18:02 | DVH ---
INDICATION: pain TECHNIQUE: Multiple real-time sonographic images of the kidneys and bladder were obtained. COMPARISON: None FINDINGS: The right kidney measures 11.5 cm cm in length, which is normal in size. There is normal echogenicit y of the right kidney. No hydronephrosis. The left kidney measures 11.2 cm cm in length, which is normal in size. There is normal echogenicity of the left kidney. No hydronephrosis. Limited evaluation of the urinary bladder due to contracted state. IMPRESSION: Unremarkable sonographic study of the kidneys. Limited evaluation of the urinary bladder due to contracted state.
[2025-05-20] MEDS: PIPERACILLIN-TAZOB 3.375GM 100 ML IV SCH (18:15)
[2025-05-20] MEDS ORDERED: TIRZ10IN2 SC (19:30)
[2025-05-20] MEDS ORDERED: LORA-483 PO (19:30)
[2025-05-20] MEDS ORDERED: CLOT1PAK (19:30)
[2025-05-20] MEDS ORDERED: FLUC150T47 PO (19:30)
[2025-05-20] MEDS ORDERED: PANT40TA57 PO (19:30)
[2025-05-20] MEDS ORDERED: EPIN0.3I24 IM (19:30)
[2025-05-20 20:57] VITALS: BP 122/72; PULSE 76; RESP 16; TEMP 98.1; O2SAT 97
[2025-05-20 22:30] VITALS: PULSE 70; RESP 18; O2SAT 96
[2025-05-21] VITALS (8 sets, daily range): BP systolic 96–134; BP diastolic 50–73; PULSE 66–75; RESP 14–20; TEMP 97–98.1; O2SAT 96–99
[2025-05-21 07:36] LABS: Basophils # (auto) 0 10 ^3/uL (0-0.2); Basophils % (auto) 0.7 % (0.0-2.0); Eosinophils # (auto) 0 10 ^3/uL (0-0.8); Eosinophils % (auto) 0.6 % (0.0-7.0); Hematocrit 39.6 % (36.0-46.0); Hemoglobin 13.2 g/dL (12.2-16.2); Lymphocytes # (auto) 1.7 10 ^3/uL (0.4-5.4); Lymphocytes % (auto) 30.9 % (10.0-50.0); Mean Corpuscular Hemoglobin 28.5 pg (28.0-32.0); Mean Corpuscular Hgb Conc. 33.3 g/dL (32.0-36.0); Mean Corpuscular Volume 85.7 fL (80.0-100.0); Monocytes # (auto) 0.6 10 ^3/uL (0-1.3); Monocytes % (auto) 10.1 % (0.0-12.0); Neutrophils # (auto) 3.2 10 ^3/uL (1.6-8.6); Neutrophils % (auto) 57.7 % (37.0-80.0); Platelet Count (auto) 267 10^3/uL (140-450); Red Blood Cells 4.62 10^6/uL (4.0-5.20); White Blood Cell 5.6 10^3/uL (4.4-10.8)
[2025-05-21 08:06] LABS: Albumin 4.1 g/dL (3.2-4.8); Alkaline Phosphatase 52 U/L (46-116); Anion Gap 10 (5-15); Aspartate Aminotransferase 11 U/L (<34); BUN/Creatinine Ratio 12.8 (10.0-20.0); Blood Urea Nitrogen 14 mg/dL (9-23); Calcium 10.1 mg/dL (8.7-10.4); Carbon Dioxide 26 mmol/L (20-31); Chloride 106 mmol/L (98-107); Glucose 84 mg/dL (74-106); Potassium 3.7 mmol/L (3.5-5.1); Sodium 142 mmol/L (136-145); Total Protein 6.9 g/dL (5.7-8.2)
[2025-05-21 08:07] LABS: Bilirubin, Total 0.5 mg/dL (0.2-1.0)
[2025-05-21 08:16] LABS: Alanine Aminotransferase < 9 U/L (7-40)
[2025-05-21] MEDS: PANTOPRAZOLE 40 MG TAB PO SCH (09:46)
[2025-05-21] MEDS: HYDROcodone-ACET 5/325MG TAB PO PRN (14:54)
--- NOTE | 2025-05-21 15:35 | DVHPN2 ---
Subjective I am assuming the care of the patient from today onwards. Chart reviewed. This is a follow up in 44-year-old female who initially presented to the hospital with right flank pain and dysuria. Changes from previous H/P or p: No Changes Gastrointestinal: Abdominal Pain Objective Vitals Vital Signs Date Time Temp Pulse Resp B/P (MAP) Pulse Ox O2 Delivery O2 Flow Rate FiO2 05/21/25 08:30 97.0 69 14 104/50 (68) 99 97.0 05/20/25 22:30 Room Air* 0 21 Intake/Output Intake and Output 05/21/25 07:00 Intake Total 450 ml Balance 450 ml Intake Oral 300 ml IV Total 150 ml # Voids 2 # Bowel Movements 2 Exam HEENT pupils reactive Neck is supple CVS S1-S2 regular rate and rhythm Respiratory B/L clear GI positive bowel sounds Extremity no edema DOG [employer] no motor deficit Medications Current Medications Medications Dose Ordered Sig/Kellie Route Start Time Stop Time Status Last Admin Dose Admin Piperacillin Sod/ Tazobactam Sod 100 ml @ 25 mls/hr Q8HR IV 05/20/25 16:00 05/21/25 14:54 25 MLS/HR Ondansetron HCl 4 mg Q4HP PRN IV 05/20/25 16:00 Acetaminophen 650 mg Q6HP PRN PO 05/20/25 16:00 05/21/25 11:49 650 MG Pantoprazole Sodium 40 mg DAILY PO 05/21/25 10:00 05/21/25 09:46 40 MG Alprazolam 0.5 mg TIDPRN PRN PO 05/20/25 16:00 05/21/25 09:54 0.5 MG Acetaminophen/ Hydrocodone Bitart 1 tab Q4HPRN PRN PO 05/21/25 14:30 05/21/25 14:54 1 TAB Laboratory Results Laboratory Tests 05/21/25 05:51 Chemistry Test 05/21/25 05:51 Albumin 4.1 g/dL (3.2-4.8) Calcium Level 10.1 mg/dL (8.7-10.4) Total Protein 6.9 g/dL (5.7-8.2) LFT Test 05/21/25 05:51 Alanine Aminotransferase (ALT) < 9 U/L (7-40) Alkaline Phosphatase 52 U/L (46-116) Aspartate Amino Transferase (AST) 11 U/L (<34) Total Bilirubin 0.5 mg/dL (0.2-1.0) Urinalysis Test 05/20/25 11:00 Urine Color Yellow (Yellow) Urine Clarity Turbid (Clear) H Urine pH 5.5 (5.0-9.0) Urine Specific [place] 1.020 (1.001-1.035) Urine Protein Negative (Negative) Urine Ketones Negative (Negative) Urine Blood Negative /uL (Negative) Urine Nitrite Negative (Negative) Urine Bilirubin Negative (Negative) Urine Urobilinogen Normal mg/dL (Negative) Urine Leukocyte Esterase 3+ /uL (Negative) Urine RBC 6 /hpf (0 - 4) Urine Microscopic WBC 33 /HPF (0-5) H Urine Squamous Epithelial Cells Few /hpf (<5) Urine Bacteria None seen /hpf (None Seen) Urine Mucus Few (None Seen) Urine Glucose Normal mg/dL (Normal) Assessment/Plan Assessment/Plan 44-year-old female who initially presented to the house she has been the right flank pain and dysuria found to have 1. Acute pyelonephritis 2. Urinary tract infection 3. Morbid obesity colostomyII 4 recently treated UTI 5. Anxiety disorder -IV antibiotics, Xanax p.r.n. anxiety -discharge plan. Plan discussed with: Patient My Orders Orders - LINDA BAER MD Procedure Category Date Status Time Hydrocodone-Acet PHA 05/21/25 In Process 5/325mg Tab ([place] 14:30 Date of Service: May 21, 2025 Billing Provider: LINDA BAER MD Common Visit Codes: [id number] INP/OBS CARE(MOD) LINDA BAER MD May 21, 2025 15:35
[2025-05-22 01:00] VITALS: BP 108/61; PULSE 67; RESP 20; TEMP 97.3; O2SAT 97
[2025-05-22 05:00] VITALS: BP 99/64; PULSE 81; RESP 20; TEMP 97.6; O2SAT 96
[2025-05-22 08:30] VITALS: BP 100/63; PULSE 73; RESP 16; TEMP 98.1; O2SAT 99
[2025-05-22 12:30] VITALS: BP 112/66; PULSE 76; RESP 16; TEMP 97.9; O2SAT 98
[2025-05-22] MEDS ORDERED: AUG875T PO (14:53)
[2025-05-22] MEDS ORDERED: HYDR-4902 PO (14:57)
[2025-05-22] MEDS ORDERED: NALO4SPR2 (14:57)
--- NOTE | 2025-05-22 14:57 | DVHDS2 ---
Discharge Summary Date of Admission May 20, 2025 at 15:54 Date of Discharge: May 22, 2025 Labs/Diagnostic Data: Laboratory Results Test 05/21/25 05:51 05/20/25 11:00 White Blood Count 5.6 10^3/uL (4.4-10.8) Red Blood Count 4.62 10^6/uL (4.0-5.20) Hemoglobin 13.2 g/dL (12.2-16.2) Hematocrit 39.6 % (36.0-46.0) Mean Corpuscular Volume 85.7 fL (80.0-100.0) Mean Corpuscular Hemoglobin 28.5 pg (28.0-32.0) Mean Corpuscular Hemoglobin Concent 33.3 g/dL (32.0-36.0) Red Cell Distribution Width 15.0 % (11.8-14.3) Platelet Count 267 10^3/uL (140-450) Mean Platelet Volume 7.9 fL (6.9-10.8) Neutrophils (%) (Auto) 57.7 % (37.0-80.0) Lymphocytes (%) (Auto) 30.9 % (10.0-50.0) Monocytes (%) (Auto) 10.1 % (0.0-12.0) Eosinophils (%) (Auto) 0.6 % (0.0-7.0) Basophils (%) (Auto) 0.7 % (0.0-2.0) Neutrophils # (Auto) 3.2 10 ^3/uL (1.6-8.6) Lymphocytes # (Auto) 1.7 10 ^3/uL (0.4-5.4) Monocytes # (Auto) 0.6 10 ^3/uL (0-1.3) Eosinophils # (Auto) 0 10 ^3/uL (0-0.8) Basophils # (Auto) 0 10 ^3/uL (0-0.2) Nucleated Red Blood Cells 0.0 % Sodium Level 142 mmol/L (136-145) Potassium Level 3.7 mmol/L (3.5-5.1) Chloride Level 106 mmol/L (98-107) Carbon Dioxide Level 26 mmol/L (20-31) Anion Gap 10 (5-15) Blood Urea Nitrogen 14 mg/dL (9-23) Creatinine 1.09 mg/dL (0.550-1.02) Glomerular Filtration Rate Calc 65 mL/min (>90) BUN/Creatinine Ratio 12.8 (10.0-20.0) Serum Glucose 84 mg/dL (74-106) Calcium Level 10.1 mg/dL (8.7-10.4) Total Bilirubin 0.5 mg/dL (0.2-1.0) Aspartate Amino Transferase (AST) 11 U/L (<34) Alanine Aminotransferase (ALT) < 9 U/L (7-40) Alkaline Phosphatase 52 U/L (46-116) Total Protein 6.9 g/dL (5.7-8.2) Albumin 4.1 g/dL (3.2-4.8) Urine Color Yellow (Yellow) Urine Clarity Turbid (Clear) Urine pH 5.5 (5.0-9.0) Urine Specific [place] 1.020 (1.001-1.035) Urine Protein Negative (Negative) Urine Ketones Negative (Negative) Urine Blood Negative /uL (Negative) Urine Nitrite Negative (Negative) Urine Bilirubin Negative (Negative) Urine Urobilinogen Normal mg/dL (Negative) Urine Leukocyte Esterase 3+ /uL (Negative) Urine RBC 6 /hpf (0 - 4) Urine Microscopic WBC 33 /HPF (0-5) Urine Squamous Epithelial Cells Few /hpf (<5) Urine Bacteria None seen /hpf (None Seen) Urine Mucus Few (None Seen) Urine Glucose Normal mg/dL (Normal) Other Laboratory Tests 05/21/25 05:51 Brief Hx & Hospital Course: 44-year-old female who initially presented to the hospital with right flank pain and dysuria found to have acute pyelonephritis as well as UTI. Patient was treated with the IV antibiotics. Patient's CT abdomen and pelvis was done which shows no evidence of any stone. Patient is currently asymptomatic and requesting to go home. Patient will be discharged home with the p.o. antibiotics with a close follow up as an outpatient with the PCP and please return to ER if there is any current flank pain or any urinary symptoms. Condition at Discharge: Stable Final Diagnosis/Problems List 44-year-old female who initially presented to the house she has been the right flank pain and dysuria found to have 1. Acute pyelonephritis 2. Urinary tract infection 3. Morbid obesity class III 4 recently treated UTI 5. Anxiety disorder Discharge Disposition: Home SNF Discharge Will this Physician continue t: No Discharge Instruct/Medications Diet: Cardiac 2g Na,low cholest Activity: See Comment Activity comment: No driving, no signing legal documents, no playing on machinery while on narcotics. Follow Up/Referral: Follow up with the PCP in one week Medications: Augmentin as prescribed, [place] as prescribed New Medications: Amoxicillin & Pot Clavulanate (Augmentin Tablet) 875 Mg Tb 875 MG PO BID for 3 Days, #6 TAB Hydrocodone-Acetaminophen (Hydrocodone Bitartrate/AC 5-325 mg) 1 Tab Tab 1 TAB PO Q8HP PRN, #10 TAB Naloxone HCl (Narcan) 4 Mg/0.1 Ml Spr 4 MG NA HAND FORMER, #2 SPRAY Continued Medications: Alprazolam (Alprazolam) 0.5 Mg Tab 0.5 MG PO TIDPRN PRN for ANXIETY, TAB Xtopoazcegvo-Vivelibgqtgxx-Drp (Dermacinrx Therazole Herb 1-0.05 & 20 %) 1 Herb Herb Fluconazole (Fluconazole) 150 Mg Tab 1 PO Loratadine (Claritin Tablet) 10 Mg Tb 1 TAB PO DAILY Pantoprazole Sodium Sesquihydr (Pantoprazole Sodium Dr) 40 Mg Tab 1 TAB PO QAM Tirzepatide (Zepbound) 2.5 Mg/0.5 Ml Inj 2.5 MG SC QWEEKLY, INJ Tirzepatide (Zepbound) 10 Mg/0.5 Ml Inj 0.5 ML SC QWEEKLY Discontinued Medications: Epinephrine (Epinephrine) 0.3 Mg/0.3 Ml Inj 0.3 ML IM PRN for anaphylaxis Ibuprofen Micronized (Ibuprofen) 600 Mg Tab 600 MG PO Q8HPRN PRN, #20 TAB Pantoprazole Sodium Sesquihydr (Protonix) 40 Mg Tab 40 MG PO DAILY, #30 TAB Discharge Statement: "Patient was advised to return to the ER or call 911 if any headaches, dizziness, shortness of breath, chest pain, abdominal pain, bleeding, fevers, or worsening of medical condition. Patient was counseled about treatment plan, medications, possible side effects, patientverbalized understanding. All questions were answered to the best of my ability. This discharge took greater then 30 minutes in planning, reviewing documentation, counseling the patient, and discussing with other team members." ASSESSMENT ASSESSMENT Assessment 44-year-old female who initially presented to the house she has been the right flank pain and dysuria found to have 1. Acute pyelonephritis 2. Urinary tract infection 3. Morbid obesity class III 4 recently treated UTI 5. Anxiety disorder Date of Service: May 22, 2025 Billing Provider: LINDA BAER MD Common Visit Codes: [id number] DISCH DAY >30min LINDA BAER MD May 22, 2025 14:57
[2025-05-22 16:30] VITALS: BP 111/67; PULSE 78; RESP 16; TEMP 98; O2SAT 95
[2025-05-22 16:45] VITALS: BP 111/67; PULSE 78; RESP 16; TEMP 98; O2SAT 95
== END 2025-05-22 17:22 | disposition home or self-care (01) | DRG 463 ==
LOC: ER 10:51 → OVERFLOW 15:54 → EAST 22:25
DX: N10 Acute pyelonephritis (principal); E66.813 Obesity, class 3; Z68.37 Body mass index [BMI] 37.0-37.9, adult; F41.9 Anxiety disorder, unspecified; K21.9 Gastro-esophageal reflux disease without esophagitis; F17.210 Nicotine dependence, cigarettes, uncomplicated; F10.90 Alcohol use, unspecified, uncomplicated; F12.90 Cannabis use, unspecified, uncomplicated; Z98.84 Bariatric surgery status; Z98.51 Tubal ligation status; Z83.3 Family history of diabetes mellitus; Z88.5 Allergy status to narcotic agent; Z91.018 Allergy to other foods
CPT/HCPCS: 36415; 74176; 76775; 80048; 80053; 81001; 84075; 84450; 84460; 85025; 96365; G0378; J2543